=== PATIENT | female | born 1980 | race Caucasian/White ===

== ENCOUNTER → 2024-01-01 12:06 | Outpatient (REF) | payer BC, SELFPAY | LOC: WDC 12:06 | PROVIDERS: ATTENDING PHYSICIAN Family Medicine | DX: Z12.31 Encounter for screening mammogram for malignant neoplasm of breast (principal) | CPT/HCPCS: 77063; 77067 ==

== ENCOUNTER → 2024-01-07 09:34 | Outpatient (REF) | payer BC, SELFPAY | LOC: WDC 09:34 | PROVIDERS: ATTENDING PHYSICIAN Family Medicine | DX: R92.8 Other abnormal and inconclusive findings on diagnostic imaging of breast (principal) | CPT/HCPCS: 76642 ==

== ENCOUNTER → 2024-08-06 19:50 | Outpatient (REF) | payer BC, SELFPAY | LOC: MRI 3T 19:50 | PROVIDERS: ATTENDING PHYSICIAN Nurse Practitioner Adult Health; FAMILY PHYSICIAN Family Medicine | DX: H90.3 Sensorineural hearing loss, bilateral (principal) | CPT/HCPCS: 70553; A9575 ==